=== PATIENT | female | born 1995 | race Caucasian/White ===

== ENCOUNTER 2018-09-13 11:41 | Day surgery (SDC) | payer OTHER ==
[~2018-09-13] VITALS: Ht 175.3 cm; Wt 128.1 kg
[~2018-09-13 11:41] MED LIST: BCP; DOCU100 PO; DULO60 PO; HYDACE5 PO; IBUP800 PO; METF500 PO; Norco 5-325 Ta1 EACH PO; OXYACE5T PO; PROM25 PO; RANI150 PO; Sprintec1 EACH PO; Verotin-Gr Cap1 EACH PO; XELJANZ XR11 MG PO; Zofran Odt4 MG SL
--- NOTE | 2018-09-13 13:45 | NUR ---
09/13/18 1345 Quin Tenorio PT AWAKE, ALERT, ORIENTED. PT AMBULATED TO BATHROOM WELL. PT SITTING ON RECLINER, TOLERATING DRINKS AND COOKIES. PT DENIES ANY PAIN AT THIS TIME. VS WNL. WILL CONTINUE TO MONITOR.
== END 2018-09-13 14:22 | disposition home or self-care (01) ==
LOC: ORSCSDS 11:41
PROVIDERS: Obstetrics & Gynecology
PROC: 0UDB8ZX Extraction of Endometrium, Via Natural or Artificial Opening Endoscopic, Diagnostic (ICD-10-PCS; principal; 2018-09-13 13:00)
DX: N92.1 Excessive and frequent menstruation with irregular cycle (principal); E66.01 Morbid (severe) obesity due to excess calories; Z68.41 Body mass index [BMI] 40.0-44.9, adult; F17.210 Nicotine dependence, cigarettes, uncomplicated; Z79.899 Other long term (current) drug therapy
CPT/HCPCS: 88305; J1100; J2250; J2405; J3010

== ENCOUNTER 2019-12-03 20:44 | Emergency (ER) | payer OTHER ==
[~2019-12-03] VITALS: Ht 177.8 cm; Wt 122.5 kg
== END 2019-12-03 22:57 | disposition left against medical advice (07) ==
LOC: ER 20:44
DX: Z53.21 Procedure and treatment not carried out due to patient leaving prior to being seen by health care provider (principal)

== ENCOUNTER → 2020-05-18 | Outpatient (CLI) | payer OTHER | END | disposition home or self-care (01) | LOC: LAB 15:41 → LAB SHORT 15:41 | PROVIDERS: Advanced Practice Midwife | DX: Z01.419 Encounter for gynecological examination (general) (routine) without abnormal findings (principal) | CPT/HCPCS: G0123 ==

== ENCOUNTER → 2022-03-01 | Outpatient (CLI) | payer OTHER | END | disposition home or self-care (01) | LOC: LAB SHORT 10:35 → LAB 10:35 | DX: O09.893 Supervision of other high risk pregnancies, third trimester (principal) | CPT/HCPCS: 87081; 87150 ==

== ENCOUNTER 2022-03-25 05:04 | Inpatient (IN) | payer OTHER ==
[~2022-03-25] VITALS: Ht 177.8 cm; Wt 130.0 kg
[2022-03-25] MEDS ORDERED: PRENATAL TABLE1 EAC2 PO (05:48)
[2022-03-25] MEDS ORDERED: PROMETHAZINE12.5 M1 (05:48)
[2022-03-25 06:12] LABS: BASOPHILS ABSOLUTE AUTO 0.06 K/mm3 (0.00-0.23); BASOPHILS PERCENT AUTO 0 % (0-2); EOSINOPHILS ABSOLUTE AUTO 0.27 K/mm3 (0.00-0.68); EOSINOPHILS PERCENT AUTO 2 % (0-6); Hematocrit 34.7 % (33.0-51.0); Hemoglobin 11.7 g/dL (11.5-16.0); IMMATURE GRAN ABSOLUTE AUTO 0.16 K/mm3 (0.00-0.10); IMMATURE GRAN PERCENT AUTO 1 % (0-1); LYMPHOCYTES ABSOLUTE AUTO 3.18 K/mm3 (0.84-5.20); LYMPHOCYTES PERCENT AUTO 22 % (21-46); MONOCYTES ABSOLUTE AUTO 0.89 K/mm3 (0.16-1.47); MONOCYTES PERCENT AUTO 6 % (4-13); Mean Corpuscular HGB 29.8 pg (26.0-34.0); Mean Corpuscular HGB Conc 33.7 g/dL (31.5-36.5); Mean Corpuscular Volume 88 fL (80-100); Mean Platelet Volume 9.7 fL (9.1-12.4); NEUTROPHILS ABSOLUTE AUTO 10.08 K/mm3 (1.96-9.15); NEUTROPHILS PERCENT AUTO 69 % (41-73); Platelet Count 339 K/mm3 (150-400); RDW Coefficient Variation 14.9 % (11.7-14.2); RDW Standard Deviation 48.7 fL (35.1-46.3); Red Blood Cell Count 3.93 M/mm3 (3.80-5.20); White Blood Cell Count 14.64 K/mm3 (4.00-11.30)
--- NOTE | 2022-03-26 01:05 | NUR ---
IV REMOVAL PT REQUESTING IV BE REMOVED DUE TO DISCOMFORT. PT EDUCATED ON RISKS RELATED TO REMOVING IV AND POSSIBLE NEED FOR REINSERTION. PT VERBALIZED UNDERSTANDING AND CONTINUED TO REQUEST REMOVAL.
--- NOTE | 2022-03-26 08:14 | NUR ---
wants to go home tonight at 24 hrs out if possible. educated that with covid positive, if goes home needs to stay at home and not go out to eat or shopping, to have family bring them what they need.
[2022-03-26 09:25] LABS: BASOPHILS ABSOLUTE AUTO 0.03 K/mm3 (0.00-0.23); BASOPHILS PERCENT AUTO 0 % (0-2); EOSINOPHILS ABSOLUTE AUTO 0.12 K/mm3 (0.00-0.68); EOSINOPHILS PERCENT AUTO 1 % (0-6); Hematocrit 32.8 % (33.0-51.0); Hemoglobin 11.1 g/dL (11.5-16.0); IMMATURE GRAN PERCENT AUTO 1 % (0-1); LYMPHOCYTES ABSOLUTE AUTO 2.69 K/mm3 (0.84-5.20); LYMPHOCYTES PERCENT AUTO 16 % (21-46); MONOCYTES ABSOLUTE AUTO 0.67 K/mm3 (0.16-1.47); MONOCYTES PERCENT AUTO 4 % (4-13); Mean Corpuscular HGB 29.8 pg (26.0-34.0); Mean Corpuscular HGB Conc 33.8 g/dL (31.5-36.5); Mean Corpuscular Volume 88 fL (80-100); Mean Platelet Volume 9.9 fL (9.1-12.4); NEUTROPHILS ABSOLUTE AUTO 13.03 K/mm3 (1.96-9.15); NEUTROPHILS PERCENT AUTO 78 % (41-73); Platelet Count 312 K/mm3 (150-400); RDW Coefficient Variation 14.7 % (11.7-14.2); Red Blood Cell Count 3.73 M/mm3 (3.80-5.20); White Blood Cell Count 16.64 K/mm3 (4.00-11.30)
[2022-03-26] MEDS ORDERED: IBUP800 PO (14:57)
--- NOTE | 2022-03-26 17:52 | NUR ---
reports doing well, just waiting to go home
== END 2022-03-26 21:37 | disposition home or self-care (01) | DRG 805 ==
LOC: OBS 05:04 → BC 05:06 → OBS 05:15 → BC 05:17
PROVIDERS: ADMIT Obstetrics & Gynecology
PROC: 10E0XZZ Delivery of Products of Conception, External Approach (ICD-10-PCS; principal; 2022-03-25)
PROC: 00HU33Z Insertion of Infusion Device into Spinal Canal, Percutaneous Approach (ICD-10-PCS; 2022-03-25)
PROC: 3E0R3BZ Introduction of Anesthetic Agent into Spinal Canal, Percutaneous Approach (ICD-10-PCS; 2022-03-25)
PROC: 10H07YZ Insertion of Other Device into Products of Conception, Via Natural or Artificial Opening (ICD-10-PCS; 2022-03-25)
DX: O99.214 Obesity complicating childbirth (principal); U07.1 COVID-19; Z37.0 Single live birth; O98.52 Other viral diseases complicating childbirth; O99.344 Other mental disorders complicating childbirth; O99.334 Smoking (tobacco) complicating childbirth; F41.8 Other specified anxiety disorders; O72.1 Other immediate postpartum hemorrhage; O76 Abnormality in fetal heart rate and rhythm complicating labor and delivery; O34.03 Maternal care for unspecified congenital malformation of uterus, third trimester; Q51.3 Bicornate uterus; F17.210 Nicotine dependence, cigarettes, uncomplicated; O99.824 Streptococcus B carrier state complicating childbirth; Z3A.39 39 weeks gestation of pregnancy; Z67.40 Type O blood, Rh positive; Z79.899 Other long term (current) drug therapy
CPT/HCPCS: 36415; 51702; 85025; 86850; 86900; 86901; A9270; J0290; J2210; J2590; J7120

== ENCOUNTER 2022-06-09 10:50 | Day surgery (SDC) | payer OTHER ==
[~2022-06-09] VITALS: Ht 177.8 cm; Wt 121.5 kg
[~2022-06-09 10:50] MED LIST changes: +PRENATAL TABLE1 EAC2 PO; +PROMETHAZINE12.5 M1
--- NOTE | 2022-06-09 17:17 | NUR ---
06/09/221716 Mao Pandey PT REPORTED 5/10 PAIN UPON DISCHARGE. SHE DESCRIBED THE PAIN TOLERABLE AND EXPRESSED READINESS TO RETURN HOME.
== END 2022-06-10 14:07 | disposition home or self-care (01) ==
LOC: ORSCSDS 10:50
PROVIDERS: Obstetrics & Gynecology
PROC: 0UT74ZZ Resection of Bilateral Fallopian Tubes, Percutaneous Endoscopic Approach (ICD-10-PCS; principal; 2022-06-09 12:00)
DX: Z30.2 Encounter for sterilization (principal); Z87.891 Personal history of nicotine dependence; E66.9 Obesity, unspecified; Z68.38 Body mass index [BMI] 38.0-38.9, adult
CPT/HCPCS: 84703; 88302; A9270; J0171; J1100; J1885; J2250; J2405; J2704; J2795; J3010

== ENCOUNTER 2023-01-25 07:47 | Day surgery (SDC) | payer OTHER ==
[2023-01-25] VITALS (14 sets, daily range): BP systolic 106–128; BP diastolic 57–80
[~2023-01-25] VITALS: Ht 177.8 cm; Wt 118.6 kg
[~2023-01-25 07:47] MED LIST changes: +MAGCHL64ER PO; +PROP80ER PO; +Spironolactone50 MG PO
--- NOTE | 2023-01-25 08:16 | NUR ---
Ambulatory in Day Surgery History, Chart, Medications and Allergies reviewed before start of procedure. Pre-Op teaching done. Pt verbalizes understanding.
--- NOTE | 2023-01-25 11:30 | NUR ---
ARRIVAL TO UNIT SLID TO HOSPITAL BED. ALERT & ORIENTED, PLEASANT. C/O MILD PAIN. DENIES N/V; CLEAR LQ's GIVEN. FIRE SAFETY EDU/ASSESSMENT DONE. DENIED IGNITION SOURCES.
[2023-01-25] MEDS ORDERED: ACET500 PO (16:16)
[2023-01-25] MEDS ORDERED: IBUP400 PO (16:16)
[2023-01-25] MEDS ORDERED: OXYC5 PO (16:16)
[2023-01-25] MEDS ORDERED: SIME80CH PO (16:17)
== END 2023-01-25 16:40 | disposition home or self-care (01) ==
LOC: ORSCMMR 07:47 → ORD 08:45 → ORSCMMR 08:45 → ORD 10:00 → SURS 11:05 → ORSCMMR 16:40
PROVIDERS: Obstetrics & Gynecology
PROC: 0UT9FZZ Resection of Uterus, Via Natural or Artificial Opening With Percutaneous Endoscopic Assistance (ICD-10-PCS; principal; 2023-01-25 08:45)
DX: N92.1 Excessive and frequent menstruation with irregular cycle (principal); N94.4 Primary dysmenorrhea; Q51.3 Bicornate uterus; N72 Inflammatory disease of cervix uteri; N80.03 Adenomyosis of the uterus; E28.2 Polycystic ovarian syndrome; Z87.891 Personal history of nicotine dependence; Z79.899 Other long term (current) drug therapy; E66.9 Obesity, unspecified; Z68.37 Body mass index [BMI] 37.0-37.9, adult
CPT/HCPCS: 58570; S2900; 86850; 86900; 86901; 88307; A9270; J0690; J1100; J1170; J1885; J2250; J2371; J2405; J2704; J3010; J7120

== ENCOUNTER → 2023-11-30 | Outpatient (CLI) | payer OTHER ==
[~2023-11-30] MED LIST changes: +ACET500 PO; +IBUP400 PO; +OXYC5 PO; +SIME80CH PO
[2023-12-04 05:31] LABS: ANTI-NUCLEAR AB ANA,IGG ELISA None Detected (None Detected)
== END ==
LOC: LAB 18:59 → LAB SHORT 18:59
PROVIDERS: Family Medicine
DX: R73.9 Hyperglycemia, unspecified (principal); M19.90 Unspecified osteoarthritis, unspecified site
CPT/HCPCS: 83036; 85651; 86038; 86140; 86430